=== PATIENT | male | born 1995 | race Two or more races ===

== ENCOUNTER 2021-09-28 19:33 | Emergency (ER) | payer OTHER ==
[~2021-09-28] VITALS: Ht 170.2 cm; Wt 77.1 kg
[2021-09-29] MEDS ORDERED: ANALPRAM HC 2.530 GM RECTAL (00:06)
== END 2021-09-29 00:30 | disposition home or self-care (01) ==
LOC: ER 19:33
DX: K62.5 Hemorrhage of anus and rectum (principal)

== ENCOUNTER → 2022-04-21 | Outpatient (CLI) | payer OTHER ==
[~2022-04-21] MED LIST: ANALPRAM HC 2.530 GM RECTAL
== END | disposition home or self-care (01) ==
LOC: LAB 06:00
PROVIDERS: ATTEND Obstetrics & Gynecology
DX: Z20.828 Contact with and (suspected) exposure to other viral communicable diseases (principal); Z20.818 Contact with and (suspected) exposure to other bacterial communicable diseases